=== PATIENT | female | born 1985 | race Two or more races ===

== ENCOUNTER 2022-02-20 10:24 | Emergency (ER) | payer OTHER ==
[~2022-02-20] VITALS: Ht 157.5 cm; Wt 61.2 kg
[2022-02-20] MEDS ORDERED: ONDANSETRON HCL 4 MG/2 ML VIAL IV ONE (10:45)
[2022-02-20] MEDS ORDERED: MORPHINE SULFATE 4 MG/ML SYR/VIAL IV ONE (10:45)
[2022-02-20] MEDS ORDERED: IOHEXOL 300 MG/ML 100ML BOTTLE IJ ONE (10:51)
[2022-02-20 13:04] LABS: Basophils # (auto) 0.1 10 ^3/uL (0-0.2); Eosinophils # (auto) 0.1 10 ^3/uL (0-0.8); Eosinophils % (auto) 2.1 % (0.0-7.0); Hematocrit 35.5 % (36.0-46.0); Hemoglobin 11.6 g/dL (12.2-16.2); Lymphocytes # (auto) 1.3 10 ^3/uL (0.4-5.4); Lymphocytes % (auto) 17.6 % (10.0-50.0); Mean Corpuscular Hemoglobin 27.5 pg (28.0-32.0); Mean Corpuscular Hgb Conc. 32.8 g/dL (32.0-36.0); Mean Corpuscular Volume 83.9 fL (80.0-100.0); Monocytes # (auto) 0.4 10 ^3/uL (0-1.3); Monocytes % (auto) 5.8 % (0.0-12.0); Neutrophils # (auto) 5.3 10 ^3/uL (1.6-8.6); Neutrophils % (auto) 73.5 % (37.0-80.0); Nucleated Red Blood Cells % 0.1 %; Red Blood Cells 4.23 10^6/uL (4.0-5.20); Red Cell Distribution Width 16.2 % (11.8-14.3); White Blood Cell 7.2 10^3/uL (4.4-10.8)
[2022-02-20 13:24] LABS: Albumin 3.2 g/dL (3.4-5.0); Potassium 3.9 mmol/L (3.5-5.1)
[2022-02-20 13:28] LABS: BUN/Creatinine Ratio 10.9; Bilirubin, Total 0.3 mg/dL (0.2-1.0); Total Protein 7.1 g/dL (6.4-8.2)
[2022-02-20] MEDS ORDERED: TRAM-297 PO (13:42)
[2022-02-20 16:00] VITALS: BP 116/64
[2022-02-20] MEDS ORDERED: KETOROLAC TROMETH 30 MG/ML 1ML VIAL IV ONE (16:15)
== END 2022-02-20 16:57 | disposition home or self-care (01) ==
LOC: ER 10:24 → EDBD 10:24 → ER 16:45
DX: S93.401A Sprain of unspecified ligament of right ankle, initial encounter (principal); S16.1XXA Strain of muscle, fascia and tendon at neck level, initial encounter; S20.219A Contusion of unspecified front wall of thorax, initial encounter; S09.90XA Unspecified injury of head, initial encounter; F17.210 Nicotine dependence, cigarettes, uncomplicated; F12.10 Cannabis abuse, uncomplicated; Z98.890 Other specified postprocedural states; V43.52XA Car driver injured in collision with other type car in traffic accident, initial encounter; Y93.89 Activity, other specified; Y92.410 Unspecified street and highway as the place of occurrence of the external cause; Y99.8 Other external cause status
CPT/HCPCS: 36415; 70450; 71260; 72125; 73610; 74177; 80053; 85025; 93005; 96374; 96375; 99285; J1885; J2270; J2405; Q9967

== ENCOUNTER 2022-03-11 17:57 | Emergency (ER) | payer SELFPAY ==
[~2022-03-11] VITALS: Ht 157.5 cm; Wt 72.6 kg
[~2022-03-11 17:57] MED LIST: TRAM-297 PO
[2022-03-11 18:05] VITALS: BP 128/82
== END 2022-03-11 22:58 | disposition home or self-care (01) ==
LOC: ER 17:57
DX: S92.101A Unspecified fracture of right talus, initial encounter for closed fracture (principal); S92.001A Unspecified fracture of right calcaneus, initial encounter for closed fracture; V49.69XA Unspecified car occupant injured in collision with other motor vehicles in traffic accident, initial encounter; Y93.89 Activity, other specified; Y92.410 Unspecified street and highway as the place of occurrence of the external cause; Y99.8 Other external cause status
CPT/HCPCS: 73610; 73700